=== PATIENT | male | born 1940 | race Caucasian/White ===

== ENCOUNTER → 2023-08-08 13:46 | Outpatient (REF) | payer MEDICARE, SELFPAY ==
[2023-08-08 16:00] LABS: % Basophils 0.9 % (0-2); % Eosinophils 2.2 % (0-6); % Immature Granulocytes 0.4 % (0-0.5); % Lymphocytes 21.5 % (20.5-51.1); % Monocytes 8.5 % (1.7-9.3); % Neutrophils 66.5 % (42.2-75.2); Absolute Basophils 0.1 10^3/uL (0-0.2); Absolute Eosinophils 0.1 10^3/uL (0-0.7); Absolute Lymphocytes 1.2 10^3/uL (1.2-3.4); Absolute Monocytes 0.5 10^3/uL (0.1-0.6); Absolute Neutrophils 3.6 10^3/uL (1.4-6.5); Hematocrit 38.1 % (39.0-52.0); Hemoglobin 11.5 g/dL (13.0-18.0); Mean Corp Hgb Conc. 30.2 g/dL (33.0-37.0); Mean Corpuscular Hgb 25.8 pg (27.0-31.0); Mean Corpuscular Volume 85.6 fL (80.0-94.0); Mean Platelet Volume 11.8 fL (7.4-10.4); Nucleated Red Blood Cells % 0 % (-); Platelet Count 165 10^3/uL (130-400); Red Blood Cell Count 4.45 10^6/uL (4.70-6.10); Red Cell Dist. Width 16.4 % (11.5-14.5); White Blood Cell Count 5.4 10^3/uL (4.8-10.8)
[2023-08-08 16:24] LABS: ALT (SGPT) < 10 U/L (0-50); AST (SGOT) 20 U/L (17-59); Albumin 3.5 g/dl (3.5-5.0); Alkaline Phosphatase 73 U/L (38-126); Blood Urea Nitrogen 23 mg/dl (9-20); Carbon Dioxide 28 mmol/L (22-30); Chloride 105 mmol/L (98-107); Glucose 82 mg/dl (70-99); HDL Cholesterol 47 mg/dl; LDL Cholesterol, Calculated 54 mg/dl; Potassium 4.2 mmol/L (3.5-5.1); Sodium 137 mmol/L (135-145); Total Bilirubin 0.8 mg/dl (0.2-1.3); Total Cholesterol 111 mg/dl (50-199); Total Protein 5.8 g/dl (6.3-8.2); Triglyceride 53 mg/dl (10-149); Very Low Density Lipoprotein 10 mg/dl (0-30); eGFR 55.19
== END ==
LOC: OLABPG 13:46
PROVIDERS: ATTENDING PHYSICIAN Family Medicine
DX: G93.40 Encephalopathy, unspecified (principal); I50.30 Unspecified diastolic (congestive) heart failure
CPT/HCPCS: 36415; 80053; 80061; 85025

== ENCOUNTER → 2023-10-10 12:07 | Outpatient (REF) | payer OTHER, SELFPAY ==
[2023-10-10 12:37] LABS: % Basophils 0.6 % (0-2); % Eosinophils 1.9 % (0-6); % Immature Granulocytes 0.2 % (0-0.5); % Monocytes 9.4 % (1.7-9.3); % Neutrophils 60.9 % (42.2-75.2); Absolute Eosinophils 0.1 10^3/uL (0-0.7); Absolute Lymphocytes 1.7 10^3/uL (1.2-3.4); Absolute Monocytes 0.6 10^3/uL (0.1-0.6); Absolute Neutrophils 3.9 10^3/uL (1.4-6.5); Hematocrit 41.3 % (39.0-52.0); Hemoglobin 12.5 g/dL (13.0-18.0); Mean Corp Hgb Conc. 30.3 g/dL (33.0-37.0); Mean Corpuscular Hgb 25.9 pg (27.0-31.0); Mean Corpuscular Volume 85.7 fL (80.0-94.0); Mean Platelet Volume 11.7 fL (7.4-10.4); Nucleated Red Blood Cells % 0 % (-); Platelet Count 175 10^3/uL (130-400); Red Blood Cell Count 4.82 10^6/uL (4.70-6.10); Red Cell Dist. Width 16.6 % (11.5-14.5); White Blood Cell Count 6.4 10^3/uL (4.8-10.8)
[2023-10-10 13:33] LABS: ALT (SGPT) < 10 U/L (0-50); AST (SGOT) 21 U/L (17-59); Albumin 4.1 g/dl (3.5-5.0); Alkaline Phosphatase 80 U/L (38-126); Blood Urea Nitrogen 23 mg/dl (9-20); Calcium 10.1 mg/dl (8.4-10.2); Carbon Dioxide 26 mmol/L (22-30); Chloride 104 mmol/L (98-107); Glucose 91 mg/dl (70-99); Potassium 4.7 mmol/L (3.5-5.1); Sodium 136 mmol/L (135-145); Total Bilirubin 0.9 mg/dl (0.2-1.3); Total Protein 6.5 g/dl (6.3-8.2); eGFR > 60.00
[2023-10-10 13:43] LABS: TSH Reflex To Free T4 < 0.02 uIU/ml (0.47-4.68)
[2023-10-10 14:10] LABS: Free T4 4.63 ng/dl (0.78-2.19)
== END ==
LOC: OLABPG 12:07
PROVIDERS: ATTENDING PHYSICIAN Family Medicine
DX: F03.90 Unspecified dementia, unspecified severity, without behavioral disturbance, psychotic disturbance, mood disturbance, and anxiety (principal)
CPT/HCPCS: 36415; 80053; 84439; 84443; 85025

== ENCOUNTER → 2023-11-28 10:26 | Outpatient (REF) | payer OTHER, SELFPAY ==
[2023-11-28 12:59] LABS: ALT (SGPT) < 10 U/L (0-50); AST (SGOT) 18 U/L (17-59)
[2023-11-28 13:17] LABS: Free T3 3.25 pg/ml (2.77-5.27); Free T4 2.96 ng/dl (0.78-2.19)
[2023-11-28 13:31] LABS: TSH < 0.02 uIU/ml (0.47-4.68)
[2023-11-30 15:58] LABS: Thyroglobulin 48.4 ng/mL (1.3-31.8); Thyroglobulin Antibodies <0.9 IU/mL (0.0-4.0)
[2023-12-01 01:23] LABS: TSH Receptor Antibody <1.10 IU/L (<=1.75)
[2023-12-01 05:08] LABS: Thyroid Stim. Immunoglobulin <0.10 IU/L (<=0.54)
== END ==
LOC: OLABPG 10:26
PROVIDERS: ATTENDING PHYSICIAN Family Medicine
DX: F03.90 Unspecified dementia, unspecified severity, without behavioral disturbance, psychotic disturbance, mood disturbance, and anxiety (principal); E05.90 Thyrotoxicosis, unspecified without thyrotoxic crisis or storm
CPT/HCPCS: 36415; 83520; 84432; 84439; 84443; 84445; 84450; 84460; 84481; 86800

== ENCOUNTER → 2024-02-01 11:41 | Outpatient (REF) | payer MEDICARE, SELFPAY ==
[2024-02-01 12:48] LABS: ALT (SGPT) 12 U/L (0-50); AST (SGOT) 20 U/L (17-59)
[2024-02-01 13:06] LABS: Free T3 2.11 pg/ml (2.77-5.27); Free T4 1.29 ng/dl (0.78-2.19)
== END ==
LOC: OLABPG 11:41
PROVIDERS: ATTENDING PHYSICIAN Family Medicine; FAMILY PHYSICIAN Internal Medicine Endocrinology, Diabetes & Metabolism
DX: F03.90 Unspecified dementia, unspecified severity, without behavioral disturbance, psychotic disturbance, mood disturbance, and anxiety (principal); E05.90 Thyrotoxicosis, unspecified without thyrotoxic crisis or storm
CPT/HCPCS: 36415; 84439; 84443; 84450; 84460; 84481

== ENCOUNTER → 2024-03-12 10:02 | Outpatient (REF) | payer MEDICARE, SELFPAY ==
[2024-03-12 11:28] LABS: ALT (SGPT) 11 U/L (0-50); AST (SGOT) 17 U/L (17-59)
[2024-03-12 11:37] LABS: Free T3 2.53 pg/ml (2.77-5.27); Free T4 1.18 ng/dl (0.78-2.19)
== END ==
LOC: OLABPG 10:02
PROVIDERS: ATTENDING PHYSICIAN Family Medicine
DX: F03.90 Unspecified dementia, unspecified severity, without behavioral disturbance, psychotic disturbance, mood disturbance, and anxiety (principal); E05.90 Thyrotoxicosis, unspecified without thyrotoxic crisis or storm
CPT/HCPCS: 36415; 84439; 84443; 84450; 84460; 84481

== ENCOUNTER 2024-05-21 14:02 | Emergency (ER) | payer MEDICARE, SELFPAY ==
[2024-05-21] VITALS (8 sets, daily range): BP systolic 115–150; BP diastolic 72–131
[2024-05-21 14:24] LABS: % Basophils 0.3 % (0-2); % Eosinophils 0.4 % (0-6); % Immature Granulocytes 0.2 % (0-0.5); % Lymphocytes 6.4 % (20.5-51.1); % Monocytes 7.4 % (1.7-9.3); % Neutrophils 85.3 % (42.2-75.2); Absolute Eosinophils 0.1 10^3/uL (0-0.7); Absolute Lymphocytes 0.8 10^3/uL (1.2-3.4); Absolute Monocytes 0.9 10^3/uL (0.1-0.6); Absolute Neutrophils 10.2 10^3/uL (1.4-6.5); Hemoglobin 13.4 g/dL (13.0-18.0); Mean Corp Hgb Conc. 30.5 g/dL (33.0-37.0); Mean Corpuscular Hgb 28.5 pg (27.0-31.0); Mean Corpuscular Volume 93.4 fL (80.0-94.0); Mean Platelet Volume 11.4 fL (7.4-10.4); Nucleated Red Blood Cells % 0 % (-); Platelet Count 179 10^3/uL (130-400); Red Blood Cell Count 4.71 10^6/uL (4.70-6.10); Red Cell Dist. Width 15.5 % (11.5-14.5)
--- NOTE | 2024-05-21 14:41 | ED.GENMED ---
History of Present Illness
<DO Earline Torrez Last Filed: 05/21/24 14:42>
General
Chief Complaint: Change Level of Consciousness
Source: [facility]
Time Seen by Provider: 05/21/24 14:19
History of Present Illness
History of Present Illness:
83-year-old male brought to the emergency room for evaluation of altered mental status. Patient has a history of dementia but is apparently ambulatory and interactive. Today he was sleepy. Not getting out of bed. Patient is arousable here in the
emergency room but does appear confused. He denies chest pain, abdominal pain or headache.
Past History
<DO Earline Torrez Last Filed: 05/21/24 14:42>
Past History
ED Past Medical History: Arrthythmia (atrial fib), CHF, HTN and Hypercholesterolemia
ED Past Surgical History: Cardiac (Pacemaker, ablation)
Social History
Tobacco: Smoker
Alcohol: None
Personal:
Living: with family (Cousin lives down stairs from patient.)
Phy Exam
<DO Earline Torrez Last Filed: 05/21/24 14:42>
Physical Exam
Physical Exam:
General: Awake, Alert, Oriented X1. No acute distress but does appear chronically ill
Vitals: unremarkable
Head: Atraumatic
Eyes: Pupils equal, EOMI
Throat: Airway intact, no exudates
Neck: Trachea midline
Lungs: Clear and equal b/l
Heart: Regular rate, no murmurs
Abd: Soft, Nontender, No pulsatile mass
Neuro: Follows commands, cranial nerves intact, muscle strength equal in all 4 extremities
Skin: Warm, dry, no rash
Extremities: pulses equal b/l, no edema
Course
<DO Earline Torrez Last Filed: 05/21/24 14:42>
Orders/Labs/Results
Orders:
Orders
05/21/24 14:14
Basic Metabolic Panel Urgent
Complete Blood Count/With Diff Urgent
05/21/24 14:40
CT Head W/o Iv Contrast Urgent
Comment:
Reason For Exam: altered mental status
05/21/24 17:38
Urinalysis Reflex To Culture Urgent
Date Specimen was Collected: 05/21/24
Time Specimen was Collected: 14:57
Urine Microscopic Reflex Cult Urgent
Urine Culture Urgent
HEAVEN Source: U
Specimen Description:
Date Specimen was Collected: 05/21/24
Time Specimen was Collected: 14:57
05/21/24 18:13
Cefdinir [Omnicef] 300 mg PO NOW STA
Abnormal Lab Results
05/21/24 05/21/24
14:14 17:38
WBC 12.0 H 10^3/uL
(4.8-10.8)
MCHC 30.5 L g/dL
(33.0-37.0)
RDW 15.5 H %
(11.5-14.5)
MPV 11.4 H fL
(7.4-10.4)
Absolute Neuts (auto) 10.2 H 10^3/uL
(1.4-6.5)
Absolute Lymphs (auto) 0.8 L 10^3/uL
(1.2-3.4)
Absolute Monos (auto) 0.9 H 10^3/uL
(0.1-0.6)
Neutrophils % 85.3 H %
(42.2-75.2)
Lymphocytes % 6.4 L %
(20.5-51.1)
BUN 25 H mg/dl
(9-20)
Glucose 120 H mg/dl
(70-99)
Ur Occult Blood Reflex 3+ A
(Negative)
Urine Nitrite (Reflex) Positive A
(Negative)
Leukocyte Esterase Rfl 2+ A
(Negative)
Urine RBC 3-6 A /HPF
(0-2)
Urine WBC (Reflex) 90-100 A /HPF
(0-5)
Urine Bacteria (Reflex) Moderate A
(Negative)
Urine Albumin (Reflex) 1+ A
(Neg - Trace)
05/21/24 14:14
05/21/24 14:14
Vital Signs
Initial and Last Documented VS:
Initial Vital Signs
Temp Pulse Resp Pulse Ox
36.7 C 90 16 94
05/21/24 14:05 05/21/24 14:05 05/21/24 14:05 05/21/24 14:05
Last Documented Vital Signs
Temp Pulse Resp BP Pulse Ox
36.7 C 94 18 115/72 97
05/21/24 14:05 05/21/24 19:35 05/21/24 16:45 05/21/24 19:35 05/21/24 19:35
<Chyna Andrew PA-C - Last Filed: 05/21/24 19:54>
Orders/Labs/Results
Orders:
Orders
05/21/24 14:14
Basic Metabolic Panel Urgent
Complete Blood Count/With Diff Urgent
05/21/24 14:40
CT Head W/o Iv Contrast Urgent
Comment:
Reason For Exam: altered mental status
05/21/24 17:38
Urinalysis Reflex To Culture Urgent
Date Specimen was Collected: 05/21/24
Time Specimen was Collected: 14:57
Urine Microscopic Reflex Cult Urgent
Urine Culture Urgent
HEAVEN Source: U
Specimen Description:
Date Specimen was Collected: 05/21/24
Time Specimen was Collected: 14:57
05/21/24 18:13
Cefdinir [Omnicef] 300 mg PO NOW STA
Abnormal Lab Results
05/21/24 05/21/24
14:14 17:38
WBC 12.0 H 10^3/uL
(4.8-10.8)
MCHC 30.5 L g/dL
(33.0-37.0)
RDW 15.5 H %
(11.5-14.5)
MPV 11.4 H fL
(7.4-10.4)
Absolute Neuts (auto) 10.2 H 10^3/uL
(1.4-6.5)
Absolute Lymphs (auto) 0.8 L 10^3/uL
(1.2-3.4)
Absolute Monos (auto) 0.9 H 10^3/uL
(0.1-0.6)
Neutrophils % 85.3 H %
(42.2-75.2)
Lymphocytes % 6.4 L %
(20.5-51.1)
BUN 25 H mg/dl
(9-20)
Glucose 120 H mg/dl
(70-99)
Ur Occult Blood Reflex 3+ A
(Negative)
Urine Nitrite (Reflex) Positive A
(Negative)
Leukocyte Esterase Rfl 2+ A
(Negative)
Urine RBC 3-6 A /HPF
(0-2)
Urine WBC (Reflex) 90-100 A /HPF
(0-5)
Urine Bacteria (Reflex) Moderate A
(Negative)
Urine Albumin (Reflex) 1+ A
(Neg - Trace)
05/21/24 14:14
05/21/24 14:14
Vital Signs
Initial and Last Documented VS:
Initial Vital Signs
Temp Pulse Resp Pulse Ox
36.7 C 90 16 94
05/21/24 14:05 05/21/24 14:05 05/21/24 14:05 05/21/24 14:05
Last Documented Vital Signs
Temp Pulse Resp BP Pulse Ox
36.7 C 94 18 115/72 97
05/21/24 14:05 05/21/24 19:35 05/21/24 16:45 05/21/24 19:35 05/21/24 19:35
<Chyna Andrew PA-C - Last Filed: 05/21/24 19:54>
Update Note
Update Note:
Received care of patient at 1600. Patient was sent from [facility] dementia unit for concerns of decreased activity level, having less of an appetite, not walking as well over the last several days. He has not had a fever. I spoke with the nurse at
the [facility] as well as his cousin who confirmed that he normally does walk, he has tried to use a walker but he does not understand how to use it so he normally just picks it up and walks with it. In the past day he has not really been wanting
to walk. On exam the patient is confused pleasantly and intermittently trying to get out of bed, he is afebrile. His white count was slightly elevated and his BUN is about stable 25 with normal creatinine, his urinalysis was pending at the time I
took over care. His UA is positive, nitrates, leuks, blood consistent with urinary tract infection which does explain some of his change in mental status. Patient was able to ambulate 15 steps on his own witnessed by RN
Patient will be prescribed cefdinir, I reviewed an old urine culture showing sensitivity to cephalosporins, the bacteria was Klebsiella.
Ordered a first dose here because the patient had pulled his IV. Await transport back to facility
ED Attending Note
<Jamil Jacobs DO - Last Filed: 05/21/24 14:42>
-
Portions of this chart may have been created with voice recognition software.� Occasional wrong word or��sound alike� substitutions may have occurred due to the inherent limitations of voice recognition software.
Discharge Plan
Departure
Patient Disposition: [facility]pc/SNF
Date of Disposition: 05/21/24
Time of Disposition: 18:13
Condition: Fair
Covid-19: Not Applicable
Discharge Problem:
UTI (urinary tract infection)
Instructions: Urinary tract infections in adults
Prescriptions:
New
cefdinir 300 mg capsule
300 mg PO Q12H Qty: 14 0RF
No Action
acetaminophen 325 MG tablet
650 mg PO Q6HPRN PRN (Reason: mild pain/fever>101)
amiodarone [Pacerone] 200 MG tablet
100 mg PO DAILY
sennosides-docusate sodium 1 TABLET tablet
2 tab PO Q12H
melatonin 3 MG tablet
3 mg PO HS
tamsulosin 0.4 MG capsule
0.8 mg PO DAILY
finasteride 5 MG tablet
5 mg PO DAILY
furosemide 20 MG tablet
20 mg PO Q48H
pravastatin 80 mg Tablet
80 mg PO DAILY
prednisone 5 mg Tablet
5 mg PO DAILY
methimazole 5 mg Tablet
2.5 mg PO DAILY
risperidone [Risperdal] 0.5 mg Tablet
0.5 mg PO DAILY
Referrals:
Zurdo Rubio MD [Family Provider] - Follow up in 2-3 days
Activity Restrictions/Additional Instructions:
GRIFFIN HAS A URINE INFECTION
GIVE HIM CEFDINIR TWICE A DAY FOR 7 DAYS
ENCOURAGE FLUIDS
WATCH FO RFEVER, WORSE WEAKNESS, NOT URINATING ETC AND RETURN NEEDED
I SPOKE WITH HIS COUSIN.
Interventions
Interventions:
*Risk Screen - Suicide Last Done: 05/21/24 14:05
*General Assessment Last Done: 05/21/24 14:05
*Neglect/Abuse Screening Last Done: 05/21/24 14:05
ED- Fall Risk Assessment Last Done: 05/21/24 19:38
*ED COVID-19 Vaccine History Last Done: 05/21/24 14:05
*Nursing Disposition Last Done: 05/21/24 19:38
ED- Cardiac Assessment Last Done: 05/21/24 14:46
ED- Neurological Assessment Last Done: 05/21/24 14:46
ED-Psychological Assessment Last Done: 05/21/24 17:41
ED- Pulmonary Assessment Last Done: 05/21/24 14:46
Discharge Date and Time
Print Language: MONGOLIAN
[2024-05-21 15:25] LABS: Blood Urea Nitrogen 25 mg/dl (9-20); Calcium 9.8 mg/dl (8.4-10.2); Carbon Dioxide 26 mmol/L (22-30); Chloride 106 mmol/L (98-107); Glucose 120 mg/dl (70-99); Sodium 142 mmol/L (135-145); eGFR > 60.00
[2024-05-21 17:43] LABS: Urine Albumin 1+ (Neg - Trace); Urine Bilirubin Negative (Negative); Urine Character Very Cloudy (Clear); Urine Color Yellow; Urine Glucose Negative (Negative); Urine Ketone Negative (Negative); Urine Leukocyte 2+ (Negative); Urine Nitrite Positive (Negative); Urine Occult Blood 3+ (Negative); Urine Urobilinogen 1+ (Neg - 1+)
[2024-05-21 17:56] LABS: Urine Squamous Cell 0-2 /LPF (Few)
[2024-05-21 17:59] LABS: Urine White Cell 90-100 /HPF (0-5)
[2024-05-21 18:00] LABS: Urine Bacteria Moderate (Negative)
[2024-05-21] MEDS: OMNICEF 300 MG PO (18:58)
== END 2024-05-21 21:00 ==
LOC: EMR 14:02
PROVIDERS: EMERGENCY PHYSICIAN Emergency Medicine; FAMILY PHYSICIAN Family Medicine
DX: N39.0 Urinary tract infection, site not specified (principal); F03.90 Unspecified dementia, unspecified severity, without behavioral disturbance, psychotic disturbance, mood disturbance, and anxiety; I48.91 Unspecified atrial fibrillation; I11.0 Hypertensive heart disease with heart failure; I50.9 Heart failure, unspecified; E78.00 Pure hypercholesterolemia, unspecified; Z95.0 Presence of cardiac pacemaker; F17.200 Nicotine dependence, unspecified, uncomplicated
CPT/HCPCS: 99284; 51701; 70450; 80048; 81003; 81015; 85025; 87077; 87086

== ENCOUNTER → 2024-06-07 10:39 | Outpatient (REF) | payer MEDICARE, SELFPAY ==
[2024-06-07 11:33] LABS: ALT (SGPT) < 10 U/L (0-50); AST (SGOT) 19 U/L (17-59)
[2024-06-07 11:49] LABS: Free T3 2.33 pg/ml (2.77-5.27); Free T4 2.37 ng/dl (0.78-2.19)
[2024-06-07 12:02] LABS: TSH 3.42 uIU/ml (0.47-4.68)
== END ==
LOC: OLABPG 10:39
PROVIDERS: ATTENDING PHYSICIAN Family Medicine
DX: F03.90 Unspecified dementia, unspecified severity, without behavioral disturbance, psychotic disturbance, mood disturbance, and anxiety (principal); E05.90 Thyrotoxicosis, unspecified without thyrotoxic crisis or storm
CPT/HCPCS: 36415; 84439; 84443; 84450; 84460; 84481